=== PATIENT | male | born 1950 | race Caucasian/White ===

== ENCOUNTER → 2017-03-07 | Outpatient (CLI) | payer BC ==
[~2017-03-07] MED LIST: HYDROCHLOROTHIA50 MG PO; HYDROCODONE-AP1 EAC6 PO; IBUPROFEN 200200 M1 PO; NORVASC10 MG PO; SENNA-S TABLET1 EACH PO
== END ==
LOC: RAD 11:50
DX: M19.012 Primary osteoarthritis, left shoulder (principal); M47.892 Other spondylosis, cervical region; M50.321 Other cervical disc degeneration at C4-C5 level; M50.322 Other cervical disc degeneration at C5-C6 level; M50.323 Other cervical disc degeneration at C6-C7 level; M43.12 Spondylolisthesis, cervical region

== ENCOUNTER → 2017-04-26 | Outpatient (CLI) | payer BC | LOC: CAT 10:20 | DX: R59.0 Localized enlarged lymph nodes (principal); K76.0 Fatty (change of) liver, not elsewhere classified; N27.0 Small kidney, unilateral ==

== ENCOUNTER → 2018-03-14 | Outpatient (CLI) | payer BC | LOC: RAD 14:43 | DX: M19.011 Primary osteoarthritis, right shoulder (principal); M17.12 Unilateral primary osteoarthritis, left knee ==

== ENCOUNTER → 2018-10-15 | Outpatient (CLI) | payer BC ==
--- NOTE | 2018-10-16 20:22 | SLE ---
[facility] [place] [address] POLYSOMNOGRAPHY STUDY Name: DHAVAL RUDOLPH Ayesha Room #: REG Hilda Ayesha#: [id number] Admission: 10/15/18 ������������������ Attend Phys: Deb Donohue MD Discharge: ������������������ Date of : 54 Report #: [id number] THIS REPORT FOR: //name// CC: eDb Donohue MD DATE OF SERVICE: 10/16/2018 HOME SLEEP STUDY ATTENDING PHYSICIAN: Dr. Deb Donohue. The patient is 68 years old who weighs 253 pounds with a BMI of 39.6. The patient's [place] score was 4. The patient underwent home sleep study performed at [facility]. Total recording time was 618 minutes. During the night study, the patient had 2 central apneas, 6 obstructive apneas and no mixed apneas and 297 hypopneas. The patient's apnea hypopnea index was 37 per hour with a supine index of 37 per hour as well. Nocturnal oximetry study revealed an average oxygen saturation of 86% with the lowest of 72%. A 552 minutes were spent in oxygen saturation of less than 90% and 184 minutes with saturation of less than 85%. Mean heart rate 83 beats per minute with a maximum of 113 beats per minute. IMPRESSION: 1. Severe sleep apnea-hypopnea syndrome at an AHI of 37 per hour. 2. Severe nocturnal hypoxia secondary to obstructive sleep apnea. RECOMMENDATIONS: 1. The patient would benefit from in-lab CPAP titration study. Alternate option would be to do home auto-titration study. 2. Once the patient is optimally treated with CPAP, then follow up in 4-6 weeks to assess compliance with CPAP and to document clinical improvement. 3. Weight loss is strongly advised. 4. Avoid CONSULTING INTERN depressants. 5. Cautioned regarding driving until symptoms of sleep apnea have resolved with the use of CPAP. ��������������������������������������������� <ELECTRONICALLY SIGNED> ���������������������������������������� By: Rashaun Anderson MD ��������������������������������������������� 10/16/182021 1501 [id number] Rashaun Anderson MD /nt
== END ==
LOC: SLEEPLAB 12:04
DX: G47.30 Sleep apnea, unspecified (principal); G47.33 Obstructive sleep apnea (adult) (pediatric); R09.02 Hypoxemia; Z88.8 Allergy status to other drugs, medicaments and biological substances

== ENCOUNTER → 2018-11-01 | Outpatient (CLI) | payer BC ==
--- NOTE | 2018-11-04 23:03 | SLE ---
[facility] [place] [address] POLYSOMNOGRAPHY STUDY Name: RUBINA RUDOLPHMayur Hodge Room #: REG [facility]#: [id number] Admission: 11/01/18 Attend Phys: Rashaun Anderson MD Discharge: Date of : 54 Report #: [id number] THIS REPORT FOR: //name// CC: Rashaun Callahan MD DATE OF SERVICE: 11/02/2018 SLEEP STUDY ATTENDING PHYSICIAN: Dr. Vamsi Callahan. The patient is a 68-year-old who weighs 253 pounds with a BMI of 29.6. The patient had a home sleep study and was found to have severe BOOGIE. The patient returned for in-lab CPAP titration study. During the night study, the patient spent 369 minutes in bed and slept for 196 minutes with a low sleep efficiency of 53%. Sleep latency was 21 minutes with a REM latency of 125 minutes. Sleep architecture showed increased stage 1 and stage 2 sleep, absent slow wave and normal REM sleep. EKG monitoring revealed an average heart rate of 78 beats per minute. No sustained arrhythmias observed. PLMS were seen at an index of 50 per hour and 4 per hour caused EEG arousals. The patient was started on CPAP at 9 cm water and titrated up to 15 cm water. At the final pressure, the patient slept for 75 minutes including 22 minutes of supine REM sleep. The patient's AHI was reduced to 3.2 per hour and oxygen saturations remained above 88% with few desaturations up to 78%. IMPRESSION: 1. Severe sleep apnea diagnosed by home sleep study. 2. Severe periodic limb movements at an index of 50 per hour, but only 4 per hour caused EEG arousals. RECOMMENDATIONS: 1. CPAP at 15 cm water completely eliminated the patient's sleep apnea and should be used on a nightly basis. 2. Follow up in 4-6 weeks to assess compliance with CPAP and to document clinical improvement. 3. Weight loss is strongly advised. 4. Avoid STERILE TECHNICIAN depressants. 5. Cautioned regarding driving until symptoms of sleep apnea resolve with the use of CPAP. [facility] [address] [place] [address] POLYSOMNOGRAPHY STUDY Name: DHAVAL RUDOLPH Room #: REG [facility]#: [id number] Admission: 11/01/18 Attend Phys: Rashaun Anderson MD Discharge: Date of : 54 Report #: [id number] 6. The patient should also be further evaluated for symptoms of restless legs during the day. <ELECTRONICALLY SIGNED> By: Rashaun Anderson MD 11/04/18 2303 [id number] 07 Rashaun Anderson MD /nt
== END ==
LOC: SLEEPLAB 09:12
DX: G47.30 Sleep apnea, unspecified (principal); G47.61 Periodic limb movement disorder

== ENCOUNTER → 2018-12-20 | Outpatient (CLI) | payer BC | LOC: RAD 14:35 | DX: M25.762 Osteophyte, left knee (principal); M25.761 Osteophyte, right knee; M25.862 Other specified joint disorders, left knee; M25.861 Other specified joint disorders, right knee ==

== ENCOUNTER → 2019-03-07 | Outpatient (CLI) | payer BC | LOC: CAT 15:12 | DX: R91.8 Other nonspecific abnormal finding of lung field (principal); I25.10 Atherosclerotic heart disease of native coronary artery without angina pectoris; J84.10 Pulmonary fibrosis, unspecified; I70.0 Atherosclerosis of aorta; Z72.0 Tobacco use ==

== ENCOUNTER → 2019-12-22 | Outpatient (CLI) | payer OTHER | LOC: ULTRA 10:47 | PROVIDERS: ATTEND Family Medicine | DX: R22.43 Localized swelling, mass and lump, lower limb, bilateral (principal); I48.0 Paroxysmal atrial fibrillation; E11.9 Type 2 diabetes mellitus without complications; J44.9 Chronic obstructive pulmonary disease, unspecified; I10 Essential (primary) hypertension; E78.2 Mixed hyperlipidemia; I25.10 Atherosclerotic heart disease of native coronary artery without angina pectoris; I25.84 Coronary atherosclerosis due to calcified coronary lesion; Z72.0 Tobacco use ==

== ENCOUNTER → 2020-04-14 | Outpatient (CLI) | payer OTHER | LOC: CAT 14:55 | PROVIDERS: ATTEND Pediatrics | DX: Z12.2 Encounter for screening for malignant neoplasm of respiratory organs (principal); R91.1 Solitary pulmonary nodule; Z87.891 Personal history of nicotine dependence ==

== ENCOUNTER → 2021-01-11 | Outpatient (CLI) | payer OTHER | LOC: CAT 10:44 | PROVIDERS: ATTEND Pediatrics | DX: R91.1 Solitary pulmonary nodule (principal); R06.02 Shortness of breath; J44.9 Chronic obstructive pulmonary disease, unspecified ==